=== PATIENT | female | born 1950 | race Caucasian/White ===

== ENCOUNTER 2020-04-06 17:49 | Emergency (ER) | payer MEDICARE ==
--- NOTE | 2020-04-06 19:04 | XRAY Report ---
PROCEDURE: Knee 3 View LT INDICATIONS: pain TECHNIQUE: 3 views of the left knee(s) were acquired. COMPARISON: None. FINDINGS: Bones: Suggestion of periosteal reaction involving the lateral cortex of the proximal left fibula. T his is incompletely visualized. However, the proximal fibula appears unremarkable on the lateral proj ection. Finding may be secondary to patient positioning and projection. Otherwise, no acute fracture or dislocation. No suspicious bony lesions. Soft tissues: Small joint effusion. No suspicious soft tissue calcifications. IMPRESSION: 1. Suggestion of possible periosteal reaction of the lateral cortex of the proximal fibula seen only on the AP view which may be projectional given unremarkable appearance on the lateral view. Recommend correlation with examination for point tenderness to the proximal fibula. Consider further evaluatio n with dedicated radiographs of the proximal tibia and fibula if needed. 2. Small joint effusion. Otherwise, no acute fracture or dislocation. Reviewed by: Cristhian Coyne MD on 04/06/2020 7:03 PM PST Approved by: Cristhian Coyne MD on 04/06/2020 7:03 PM PST Station ID: [id number]
[2020-04-06] MEDS ORDERED: CHERRY SYRUP 10 ML UDC PO ONE (19:36)
[2020-04-06] MEDS ORDERED: DEXAMETHASONE 10 MG/ML VIAL PO STA (19:36)
[2020-04-06] MEDS ORDERED: KETOROLAC 30 MG/ML VIAL IM STA (19:37)
--- NOTE | 2020-04-06 19:38 | ED Physician Documentation ---
PD HPI LOWER EXT INJURY - Stated complaint Stated Complaint: LT LEG PX - Chief complaint Chief Complaint: Ext Problem - History obtained from History obtained from: Patient - History of Present Illness PD HPI LOW EXT INJURY LOCATION: Left, Knee Type of injury: Other (excessive use with walking and biking) Where injury occurred: Home Timing - onset: Yesterday Timing - duration: Days (3) Timing - details: Gradual onset, Still present Improved by: Rest Worsened by: Other (weight bearing) Associated symptoms: No: Numbness, Tingling, Swelling, Discolored Contributing factors: No: Anticoagulated Similar symptoms before: No diagnosis (symptoms much less) Recently seen: Not recently seen - Additional information Additional information: 69-year-old female has been taking care of her granddaughter for the past 4 months and over the past 2 days she is done a lot more walking than she had previously. She is also using a bicycle and yesterday she had to walk with a bicycle or several miles. She states that today she has pain in her left knee that has not been present previously it is severe when she goes to place weight on it and it is not so bad if she is not moving around. She is able to move her knee through a range of motion without difficulty and has not injured this knee previously. She does have some pain in this knee periodically never lasting this long or being this intense. She has not had a fever she is able to ambulate on this knee but has a slight limp Review of Systems Constitutional: denies: Fever Eyes: denies: Decreased vision Ears: denies: Ear pain Nose: denies: Congestion Throat: denies: Sore throat Cardiac: denies: Chest pain / pressure, Palpitations Respiratory: denies: Dyspnea, Cough GI: denies: Abdominal Pain, Nausea, Vomiting : denies: Dysuria, Frequency Skin: denies: Rash Musculoskeletal: reports: Joint pain, Pain with weight bearing. denies: Neck pain, Back pain, Joint swelling Neurologic: denies: Generalized weakness, Focal weakness, Numbness PD PAST MEDICAL HISTORY - Past Medical History Past Medical History: Yes Cardiovascular: High cholesterol Endocrine/Autoimmune: Other Other Past Medical History: pre diabetic - Past Surgical History Past Surgical History: Yes /RESEARCH NURSE: section - Present Medications Home Medications: Ambulatory Orders Medication Instructions Recorded Confirmed Levothyroxine [Synthroid] 112 mcg PO DAILY 04/06/20 04/06/20 Meloxicam [Mobic] 7.5 mg PO BID PRN #20 tablet 04/06/20 Simvastatin [Zocor] 20 mg PO 04/06/20 - Allergies Allergies/Adverse Reactions: Allergies Allergy/AdvReac Type Severity Reaction Status Date / Time acetaminophen [From Percocet] Allergy Hallucinati Verified 04/06/20 18:01 ons morphine Allergy Itching Verified 04/06/20 18:01 oxycodone [From Percocet] Allergy Hallucinati Verified 04/06/20 18:01 ons - Social History Does the pt smoke?: No Smoking Status: Never smoker Does the pt drink ETOH?: Yes Does the pt have substance abuse?: No - Immunizations Immunizations are current?: Yes - POLST Patient has POLST: No PD ED PE NORMAL - Vitals Vital signs reviewed: Yes (Wide pulse pressure) - General General: Alert and oriented X 3, No acute distress, Well developed/nourished - HEENT HEENT: Atraumatic, PERRL, EOMI - Respiratory Respiratory: No respiratory distress - Derm Derm: Normal color, Warm and dry, No rash - Extremities Extremities: No deformity, No tenderness to palpate, Normal ROM s pain, No edema, No calf tenderness / cord, Other (Examination of the left knee reveals stable ligaments and no obvious palpable effusion the knee is able to run through a range of motion entirely without pain to the patient.) - Neuro Neuro: Alert and oriented X 3, control room tender 2-12 intact, No motor deficit, No sensory deficit, Normal speech Eye Opening: Spontaneous Motor: Obeys Commands Verbal: Oriented GCS Score: 15 - Psych Psych: Normal mood, Normal affect Results - Vitals Vitals: Vital Signs - 24 hr 04/06/20 04/06/20 04/06/20 18:01 19:04 20:50 Temperature 36.5 C 36.5 C 36.5 C Heart Rate 72 72 70 Respiratory 16 16 16 Rate Blood Pressure 130/52 L 130/60 131/62 H O2 Saturation 97 97 98 Oxygen O2 Source Room air - Rads (name of study) Left knee Radiology: Prelim report reviewed (Impression: 1. Suggestion of possible periosteal reaction of the lateral cortex of the proximal fibula seen only on the AP view which may be projectional getting unremarkable appearance on the lateral view. Recommend correlation with examination for point tenderness to the proximal fibula. Consid), Final report received ( Consider further evaluation with dedicated radiographs of the proximal tibia and fibula as needed. 2. Small joint effusion. Otherwise no acute fracture or dislocation.), EMP read indepedently, See rad report PD MEDICAL DECISION MAKING - ED course Complexity details: reviewed results, re-evaluated patient, considered differential, d/w patient ED course: 69-year-old female with a history of arthritis in her left knee has used her knee excessively and has pain with weightbearing and a small joint effusion seen on x-ray examination. On my exam of the knee there is no palpable effusion the joint is not hot and swollen there is no fever and the patient is able to tolerate weightbearing quite easily. I do not suspect a septic joint. I do suspect the patient is used her knee more than normal and has an inflammatory arthritis related to overuse. She is administered dexamethasone and Toradol with resolution in her pain. I have written her prescription for meloxicam. Departure - Departure Disposition: 01 Home, Self Care Clinical Impression: Arthritis of knee, left Condition: Stable Instructions: Osteoarthritis Follow-Up: Your, doctor [Other] Prescriptions: Meloxicam [Mobic] 7.5 mg PO BID PRN #20 tablet PRN Reason: Pain Discharge Date/Time: 04/06/20 21:04
--- NOTE | 2020-04-06 20:18 | XRAY Report ---
PROCEDURE: Tib/Fib LT INDICATIONS: evaluation of proximal fibula TECHNIQUE: 2 views of the tibia and fibula were acquired. COMPARISON: Left knee radiographic series from earlier same day FINDINGS: Bones: No acute fractures or dislocations. Basically described possible periosteal thickening is not as conspicuous on this examination. The finding is likely related to patient positioning . No suspic ious bony lesions. Soft tissues: No suspicious soft tissue calcifications or masses. IMPRESSION: Left tibia/fibula without acute radiographic abnormalities. If there is continued clinical concern for pathology, then nonemergent advanced imaging (CT, MRI, or bone scan) can be considered for further evaluation. Reviewed by: Cristhian Coyne MD on 04/06/2020 8:17 PM PST Approved by: Cristhian Coyne MD on 04/06/2020 8:17 PM PST Station ID: [id number]
[2020-04-06 20:52] VITALS: BP 131/62
== END 2020-04-06 21:04 | disposition home or self-care (01) ==
LOC: ED 17:49
DX: M17.12 Unilateral primary osteoarthritis, left knee (principal); M70.862 Other soft tissue disorders related to use, overuse and pressure, left lower leg; Y93.01 Activity, walking, marching and hiking; Y92.009 Unspecified place in unspecified non-institutional (private) residence as the place of occurrence of the external cause
CPT/HCPCS: 73562; 73590; 96372; 99284; A9270